=== PATIENT | female | born 1940 | race American Indian/Alaskan Native ===

== ENCOUNTER 2016-04-22 10:58 | Day surgery (SDC) | payer MEDICARE ==
[2016-04-22 11:52] LABS: Basophils % (Auto) 0.5 % (0.0-1.8); Eosinophils % (Auto) 1.3 % (0.0-4.3); Hematocrit 40.6 % (30.3-42.9); Hemoglobin 13.5 gm/dl (10.1-14.3); Mean Corpuscular HGB Conc 33 % (30-34); Mean Corpuscular Hemoglobin 26 pg (28-32); Mean Corpuscular Volume 79 fl (79-97); Platelet Count 234 K/mm3 (140-440); Red Blood Count 5.17 M/mm3 (3.65-5.03); Red Cell Distribution Width 15.6 % (13.2-15.2); White Blood Count 6.5 K/mm3 (4.5-11.0)
[2016-04-22] MEDS ORDERED: NACL 0.9% 500 ML IR ONE (11:53)
[2016-04-22] MEDS ORDERED: ANCEF/STERILE WATER 2 GM/20 ML 20 ML IV ONE (11:55)
[2016-04-22] MEDS ORDERED: NACL 0.45% 1000 ML 1,000 ML IV SCH (12:00)
[2016-04-22] MEDS ORDERED: ANCEF/STERILE WATER 2 GM/20 ML 20 ML IV NR (12:00)
[2016-04-22] MEDS ORDERED: VANCOMYCIN/NS 1 GM/250 ML 250 ML IV NR (12:00)
[2016-04-22 12:01] LABS: INR 1.07 (0.87-1.13)
[2016-04-22 12:02] LABS: Partial Thromboplastin Time 30.3 Sec. (24.2-36.6)
[2016-04-22 12:11] LABS: BUN/Creatinine Ratio 24.54; Calcium 9.6 mg/dL (8.4-10.2); Chloride 92.2 mmol/L (98-107); Potassium 3.8 mmol/L (3.6-5.0)
[2016-04-22] MEDS ORDERED: NACL 0.9% 1 ML, VANCOMYCIN VIAL 1,000 MG IR ONE (12:20)
[2016-04-22] MEDS ORDERED: VANCOMYCIN VIAL 1,000 MG in NACL 0.9% 1,000 ML IRRIGATION ONE (13:30)
[2016-04-22] MEDS: VERSED ONE ×2 (13:40→13:59)
[2016-04-22] MEDS: XYLOCAINE 1% 20 mL ONE ×2 (13:40→13:58)
[2016-04-22] MEDS: SUBLIMAZE ONE ×3 (13:40→14:25)
[2016-04-22] MEDS: MARCAINE 0.25% INFILTRATI ONE ×2 (13:40→13:58)
--- NOTE | 2016-04-22 14:49 | Short Stay Summary ---
Short Stay Documentation Date of service: 04/22/16 Narrative H&P: 75 YO woman with h/o SSS s/p dual chamber PPM whose PPM battery is now depleted. She is scheduled for elective PPM generator replacement. - History Principal diagnosis: PPM battery depletion Past Medical History: hypertension, other (sick sinus syndrome) Past Surgical History: Other (pacemaker implant) Social history: no smoking - Allergies and Medications Current Medications: Allergies No Known Allergies Allergy (Verified 10/25/14 08:18) Home Medications Medication Instructions Recorded Confirmed Last Taken Type Furosemide [Lasix] 40 mg PO BID 01/27/13 04/22/16 04/22/16 09:00 History Metformin HCl [metFORMIN ER] 500 mg PO QHS 01/27/13 04/22/16 04/21/16 History 500mg NIFEdipine [NIFEdipine ER] 90 mg PO QDAY 01/27/13 04/22/16 04/21/16 History 90mg Potassium Chloride 10 meq PO QDAY 01/27/13 04/22/16 04/21/16 History 10meq Aspirin [Aspirin TAB] 325 mg PO QDAY #30 tablet 10/27/14 04/22/16 04/21/16 Rx 325mg FLUoxetine [PROzac] 20 mg PO QDAY #30 capsule 10/27/14 04/22/16 04/21/16 Rx Meclizine [Antivert] 12.5 mg PO BID PRN #60 tablet 10/27/14 04/22/16 04/10/16 Rx 12.5mg Metoprolol Xl [Metoprolol 100 mg PO QDAY #30 tablet 10/27/14 04/22/16 04/21/16 Rx SUCCINATE ER TAB] Nitroglycerin [Nitrostat] 0.4 mg SL .Q5MIN PRN #20 tab 10/27/14 04/22/16 Unknown Rx hydrALAZINE [Apresoline TAB] 50 mg PO Q8HR #90 tablet 10/27/14 04/22/16 09:00 Rx 50mg Carvedilol [Coreg] 25 mg PO BID 04/22/16 04/22/16 04/21/16 History 25mg Glimepiride [Amaryl] 2 mg PO DAILY 04/22/16 04/22/16 04/21/16 History 2mg Glimepiride [Amaryl] 4 mg PO QPM 04/22/16 04/22/16 04/21/16 History 4mg Metolazone [Metolazone] 2.5 mg PO DAILY 04/22/16 04/22/16 04/22/16 09:00 History 2.5mg cloNIDine [Catapres] 0.2 mg PO TID 04/22/16 04/22/16 04/22/16 09:00 History 0.2mg Active Medications Cefazolin Sodium (Ancef/Sterile Water 2 Gm/20 Ml) 20 mls @ 80 mls/hr IV PREOP NR PRN Reason: Protocol Stop: 04/22/16 23:01 Sodium Chloride (Nacl 0.45% 1000 Ml) 1,000 mls @ 50 mls/hr IV DIRECT CLAUDIA Last Admin: 04/22/16 13:46 Dose: 250 mls Insulin Human Regular (Novolin R) 6 units SUB-Q ONCE NR Stop: 04/22/16 16:00 Last Admin: 04/22/16 12:46 Dose: 6 units - Physical exam General appearance: no acute distress HEENT: Atraumatic, PERRLA, EOMI Lungs: Clear to auscultation Breasts: deferred Heart: Regular rate, No murmurs, Murmur Gastrointestinal: normal, normoactive bowel sounds Female Genitourinary: deferred Rectal Exam: deferred Extremities: no ischemia, No edema Neurological: Normal gait, Normal speech - Brief post op/procedure progress note Date of procedure: 04/22/16 Procedure: Pacemaker generator replacement - see procedure note - Hospital course Hospital course: stable observation after uncomplicated procedure - Disposition Condition at discharge: Good Disposition: DISCHARGED TO HOME OR SELFCARE Short Stay Discharge Plan Activity: no restrictions Diet: regular Wound: open to air Follow up with: CECILIA SANTOYO JR, MD [Primary Care Provider] - 7 Days BERENICE SIMPSON MD [Staff Physician] - 7 Days
[2016-04-22 16:40] VITALS: BP 135/62
== END 2016-04-22 16:54 | disposition home or self-care (01) ==
LOC: OPU 10:58
PROVIDERS: ATTEND Internal Medicine Cardiovascular Disease
DX: Z45.010 Encounter for checking and testing of cardiac pacemaker pulse generator [battery] (principal); I49.5 Sick sinus syndrome; I10 Essential (primary) hypertension; Z79.4 Long term (current) use of insulin; Z72.89 Other problems related to lifestyle
CPT/HCPCS: 33228; 36415; 80048; 82962; 85025; 85610; 85730; 93005; 93010; 96372; C1781; C1785; J0690; J2250; J3010; J3370; J1815